=== PATIENT | male | born 1985 | race Caucasian/White ===

== ENCOUNTER 2018-04-06 10:23 | Emergency (ER) | payer OTHER ==
[~2018-04-06] VITALS: Ht 185.4 cm; Wt 67.1 kg
[~2018-04-06 10:23] MED LIST: AMOXICILLIN875 MG PO; BACTRIM DS TAB1 EACH PO; CELEXA 10 MG TA10 M1; DELSYM30 MG/5 M1 PO; DEPAKOTE ER500 MG; FLEXERIL PO; HYDROCODONE-AP1 EAC6 PO; IBUPROFEN 800800 M1 PO; IBUPROFEN 800800 MG PO; LIORESAL 10 MG10 MG PO; MOBIC7.5 MG PO; NORCO 5-325 TA1 EACH PO; PENICILLIN V P500 MG PO; PENICILLIN VK250 MG PO; PRILOSEC 20 MG20 MG PO; WELLBUTRIN 100100 MG PO
[2018-04-06] MEDS ORDERED: PRILOSEC10 MG PO (10:36)
[2018-04-06 10:41] LABS: URINE BILIRUBIN NEGATIVE (Negative); URINE BLOOD NEGATIVE (Negative); URINE CLARITY CLEAR; URINE COLOR YELLOW; URINE GLUCOSE-RANDOM NEGATIVE (Negative); URINE KETONES NEGATIVE (Negative); URINE LEUKOCYTES-REFLEX NEGATIVE (Negative); URINE NITRITE-REFLEX NEGATIVE (Negative); URINE PROTEIN NEGATIVE (Negative); URINE UROBILINOGEN 0.2 E.U./dl (0.2-1.0)
[2018-04-06 10:52] LABS: ABSOLUTE BASOPHILS 0.1 thou/uL (0.0-0.2); ABSOLUTE EOSINOPHILS 0.2 thou/uL (0.0-0.7); ABSOLUTE LYMPHOCYTES 1.9 thou/uL (0.8-5.3); ABSOLUTE MONOCYTES 0.3 thou/uL (0.0-1.2); ABSOLUTE NEUTROPHILS 4.2 thou/uL (1.6-8.1); BASOPHILS 1.1 %; EOSINOPHILS 3.2 %; HEMOGLOBIN 14.6 gm/dL (14.0-18.0); LYMPHOCYTES 27.8 %; MCHC 33.9 g/dL (28.0-37.0); MCV 88.5 fL (80.0-100.0); MONOCYTES 4.9 %; MPV 7.8 fl. (7.2-11.1); NUCLEATED RBCS 0 /100WBC; PLATELET COUNT* 275 thou/uL (150-400); RBC 4.86 mil/uL (4.50-6.00); RDW-CV 13.6 % (10.5-14.5); WBC 6.7 thou/uL (4.0-11.0)
[2018-04-06 11:01] LABS: CALCIUM 8.9 mg/dL (8.5-10.1); CREATININE 0.8 mg/dL (0.6-1.3); POTASSIUM 3.6 mmol/L (3.5-5.1)
[2018-04-06 11:05] LABS: ALBUMIN 4.1 g/dL (3.4-5.0); TOTAL BILIRUBIN 0.4 mg/dL (<0.1-1.0); TOTAL PROTEIN 7.9 g/dL (6.4-8.2)
[2018-04-06] MEDS ORDERED: NAPROSYN500 M1 PO (11:53)
[2018-04-06 12:05] VITALS: BP 120/77
== END 2018-04-06 12:15 | disposition home or self-care (01) ==
LOC: M.ERS 10:23
PROVIDERS: Physician Assistant
DX: R10.9 Unspecified abdominal pain (principal); F31.9 Bipolar disorder, unspecified; F17.210 Nicotine dependence, cigarettes, uncomplicated

== ENCOUNTER 2020-03-22 21:55 | Emergency (ER) | payer OTHER ==
[~2020-03-22] VITALS: Ht 185.4 cm; Wt 61.2 kg
[~2020-03-22 21:55] MED LIST changes: +NAPROSYN500 M1 PO; +PRILOSEC10 MG PO
[2020-03-22 23:10] LABS: ABSOLUTE BASOPHILS 0.1 thou/uL (0.0-0.2); ABSOLUTE EOSINOPHILS 0.3 thou/uL (0.0-0.7); ABSOLUTE LYMPHOCYTES 2.3 thou/uL (0.8-5.3); ABSOLUTE MONOCYTES 0.4 thou/uL (0.0-1.2); ABSOLUTE NEUTROPHILS 3.8 thou/uL (1.6-8.1); BASOPHILS 1.2 %; EOSINOPHILS 4.9 %; HEMATOCRIT 41.8 % (42.0-52.0); HEMOGLOBIN 14.3 gm/dL (14.0-18.0); LYMPHOCYTES 33.6 %; MCH 31.2 pg (26.0-34.0); MCHC 34.3 g/dL (28.0-37.0); MCV 90.9 fL (80.0-100.0); MONOCYTES 5.8 %; MPV 7.7 fl. (7.2-11.1); NUCLEATED RBCS 0 /100WBC; PLATELET COUNT* 227 thou/uL (150-400); POLYS 54.5 %; RBC 4.59 mil/uL (4.50-6.00); RDW-CV 14.1 % (10.5-14.5); WBC 6.9 thou/uL (4.0-11.0)
[2020-03-22 23:17] LABS: CALCIUM 8.1 mg/dL (8.5-10.1); CREATININE 0.9 mg/dL (0.6-1.3); POTASSIUM 3.6 mmol/L (3.5-5.1)
[2020-03-22 23:21] LABS: ALBUMIN 3.8 g/dL (3.4-5.0); MAGNESIUM 1.9 mg/dL (1.8-2.4); TOTAL BILIRUBIN 0.3 mg/dL (<0.1-1.0); TOTAL PROTEIN 7.1 g/dL (6.4-8.2)
[2020-03-23] MEDS ORDERED: ZOFRAN ODT4 MG PO (00:13)
[2020-03-23 00:46] VITALS: BP 119/67
--- NOTE | 2020-03-24 08:53 | EKG ---
[place] [address] ELECTROCARDIOGRAM REPORT Name: FABIO HODGE Room: [facility]#: [id number] Admission: 03/22/20 Attend Phys: Discharge: 03/23/20 Date of : 81 Date of Service: 03/22/202210 Report #: [id number] THIS REPORT FOR: //name// [facility] ED Test Date: 2020-03-22 Test Time: 22:11:07 Pat Name: FABIO HODGE Department: Room: Gender: Respite Care Provider: [place] : [id number] Requested By: Selene Montalvo Order Number: [id number] Reading MD: Darryl Juarez Measurements Intervals [place] Rate: 60 P: 52 AR: 162 QRS: 36 QRSD: 87 T: 53 QT: 410 QTc: 410 Interpretive Statements Sinus rhythm Borderline low voltage, extremity leads RSR' in V1 or V2, probably normal variant Baseline wander in lead(s) V2,V3 Compared to ECG 04/07/2015 18:42:20 RSR' in V1 or V2 now present Electronically Signed On 03-24-2020 8:52:45 CDT by Darryl Juarez [email or web address] <ELECTRONICALLY SIGNED> By: Darryl Juarez MD, FACC 03/24/20 0852 10 10 Darryl Juarez MD, FAC /EPI
== END 2020-03-23 00:49 | disposition home or self-care (01) ==
LOC: M.ERS 21:55
PROVIDERS: Emergency Medicine
DX: R42 Dizziness and giddiness (principal); F17.210 Nicotine dependence, cigarettes, uncomplicated